=== PATIENT | male | born 1935 | race Caucasian/White ===

== ENCOUNTER 2018-10-13 22:53 | Inpatient (IN) ==
[2018-10-13] MEDS ORDERED: 0.9 % SODIUM CHLORIDE 1,000 ML IV ONE (23:00)
[2018-10-13] MEDS ORDERED: ACETAMINOPHEN 325 MG TABLET PO ONE (23:00)
--- NOTE | 2018-10-13 23:27 | Emergency Department Note ---
Fever HPI - General Chief Complaint: Fever Stated Complaint: fever Time Seen by Provider: 10/13/18 23:15 Source: EMS - History of Present Illness HPI Narrative: Patient states he is been not feeling well over the past 48 hours and started having some chills today they did not take his temperature but when the nut threader arrived they did get a temperature of 103.1 his last Tylenol was given at 2:00 todayTemperatures 103.1 the pulse is 109 respirations are 18 blood pressure 140/80 - Related Data Home Medications Medication Instructions Recorded Confirmed Aspirin 81 mg CHEWED DAILY 10/14/18 10/14/18 Benazepril HCl [Lotensin] 40 mg PO DAILY 10/14/18 10/14/18 Multivit-Min/Iron Fum/Folic AC 1 tab PO DAILY 10/14/18 10/14/18 [Vxomh-Trhewuf-Iuoiqyem Tablet] amLODIPine BESYLATE [Amlodipine 5 mg PO DAILY 10/14/18 10/14/18 Besylate] glipiZIDE [Glucotrol] 10 mg PO DAILY 10/14/18 10/14/18 metFORMIN [Glucophage] 1,000 mg PO BIDCC 10/14/18 10/14/18 sitaGLIPtin [Januvia] 50 mg PO BID 10/14/18 10/14/18 Allergies Allergy/AdvReac Type Severity Reaction Status Date / Time No Known Drug Allergies Allergy Unverified 10/14/18 00:38 Review of Systems All systems ED: reviewed and negative except as stated. Constitutional: Reports: fever, chills Eyes: Denies: eye pain ENT ED: Denies: ear pain Cardiovascular: Denies: chest pain, palpitations Respiratory: Reports: as per HPI. Denies: shortness of breath, cough Gastrointestinal: Denies: abdominal pain, nausea, vomiting Genitourinary: Denies: dysuria, frequency, urgency Fever PMH - Past Medical History Medical history: Reports: DM, hypertension Family history: Reports: other (diabetes-mother father) - Social History smoking status: Never smoker Alcohol use: Reports: None Drug use: Reports: none Physical Exam Limitations: no limitations General appearance: alert Head: atraumatic, normocephalic Eye: Present: normal appearance ENT: normal exam Neck: Present: normal inspection Chest: Present: normal inspection. Absent: tenderness Respiratory: Present: normal lung sounds bilaterally. Absent: respiratory distress, rales/crackles, wheezes Cardiovascular: Present: regular rate, normal rhythm, tachycardia Abdominal: Present: soft. Absent: distention, tenderness Extremities: Present: normal inspection, full ROM. Absent: tenderness Back: Present: normal inspection, full ROM. Absent: tenderness Neurological: Present: alert, oriented X3, CN II-XII intact Psychiatric: Present: normal affect, normal mood Skin: Present: warm, cool Course Vital Signs Temperature 103.1 F H 10/13/18 22:54 Pulse Rate 109 H 10/13/18 22:54 Respiratory Rate 18 10/13/18 22:54 Blood Pressure 140/80 10/13/18 22:54 Pulse Oximetry (%) 87 L 10/13/18 22:54 Temperature 100.5 F H 10/14/18 00:35 Pulse Rate 109 H 10/13/18 22:54 Respiratory Rate 18 10/13/18 22:54 Blood Pressure 140/80 10/13/18 22:54 Pulse Oximetry (%) 87 L 10/13/18 22:54 Fever - MDM Narrative Medical decision making narrative: WBC is 7700 with 95% granulocytes hemoglobin 15.9 hematocrit is 49.0 lactic acid is 4.0 sodium is 136 the potassium 3.6 the BUN is 28 creatinine 1.4 urine does show 15 WBCs 14 RBCs culture and sensitivity has been performed blood cultures have been drawn. Chest x-ray shows small infiltrate the right lower lung schmitt patient has been started on Zithromax and Rocephin after blood cultures drawn - Lab Data Result diagrams: 10/13/18 23:44 10/13/18 23:44 Lab Results 10/13/18 10/13/18 10/13/18 Range/Units 23:44 23:44 23:44 WBC 7.7 (4.5-11.0) K/mcL RBC 5.48 (4.50-5.90) M/mcL Hgb 15.9 (13.5-16.5) g/dL Hct 49.0 (41.0-55.0) % MCV 89.5 (80.0-100.0) fL MCH 29.1 (26.0-34.0) pg MCHC 32.5 (31.0-36.0) g/dL RDW 13.7 (11.5-14.5) % Plt Count 167 (140-440) K/mcL MPV 8.0 (7.4-10.4) fL Gran % 95.2 H (38.0-78.0) % Lymph % (Auto) 3.1 L (15.5-49.0) % [place] % (Auto) 1.7 (1.0-12.0) % Eos % (Auto) 0 (0.0-7.0) % Baso % (Auto) 0 (0.0-2.0) % Gran # 7.3 (1.8-8.0) K/mcL Lymph # (Auto) 0.2 L (1.5-4.8) K/mcL Sutter # (Auto) 0.1 (0.1-0.9) K/mcL Eos # (Auto) 0 (0.0-0.7) K/mcL Baso # (Auto) 0 (0.0-0.3) K/mcL VBG Lactic Acid 4.0 H* (0.5-2.0) mmol/L Sodium 136 (133-145) mmol/L Potassium 3.6 (3.3-5.1) mmol/L Chloride 96 (96-108) mmol/L Carbon Dioxide 21 L (22-30) mmol/L Anion Gap 19.0 H (8-16) BUN 28 H (8-23) mg/dl Creatinine 1.4 H (0.7-1.2) mg/dl GFR Calculation 47 Glucose 268 H (70-105) mg/dL Calcium 8.8 (8.6-10.4) mg/dl Total Bilirubin 1.3 H (0.0-1.0) mg/dL AST 30 (0-37) U/l ALT 36 (0-40) U/l Alkaline Phosphatase 68 (39-117) U/L Total Protein 7.1 (5.9-8.4) gm/dL Albumin 4.1 (3.2-5.2) gm/dL Globulin 3.0 (2.2-3.7) gm/dL Albumin/Globulin Ratio 1.4 (1.0-2.3) Procalcitonin (<0.10) ng/mL Urine Color Urine Appearance Urine pH (5.0-9.0) Ur Specific [place] (1.000-1.035) Urine Protein (NEG) mg/dL Urine Glucose (UA) (NEG) mg/dL Urine Ketones (NEG) mg/dL Urine Occult Blood (<0.03) mg/dL Urine Nitrate (NEG) Urine Bilirubin (NEG) mg/dL Urine Urobilinogen (NEG) mg/dL Ur Leukocyte Esterase (NEG) /uL Urine RBC (0-1) /hpf Urine WBC (0-4) /hpf Ur Squamous Epith Cells (0-4) /hpf Urine Bacteria (0) /hpf Urine Mucus (0) /hpf Ur Culture Indicated? 10/13/18 10/14/18 Range/Units 23:44 00:09 WBC (4.5-11.0) K/mcL RBC (4.50-5.90) M/mcL Hgb (13.5-16.5) g/dL Hct (41.0-55.0) % MCV (80.0-100.0) fL MCH (26.0-34.0) pg MCHC (31.0-36.0) g/dL RDW (11.5-14.5) % Plt Count (140-440) K/mcL MPV (7.4-10.4) fL Gran % (38.0-78.0) % Lymph % (Auto) (15.5-49.0) % Sutter % (Auto) (1.0-12.0) % Eos % (Auto) (0.0-7.0) % Baso % (Auto) (0.0-2.0) % Gran # (1.8-8.0) K/mcL Lymph # (Auto) (1.5-4.8) K/mcL Sutter # (Auto) (0.1-0.9) K/mcL Eos # (Auto) (0.0-0.7) K/mcL Baso # (Auto) (0.0-0.3) K/mcL VBG Lactic Acid (0.5-2.0) mmol/L Sodium (133-145) mmol/L Potassium (3.3-5.1) mmol/L Chloride (96-108) mmol/L Carbon Dioxide (22-30) mmol/L Anion Gap (8-16) BUN (8-23) mg/dl Creatinine (0.7-1.2) mg/dl GFR Calculation Glucose (70-105) mg/dL Calcium (8.6-10.4) mg/dl Total Bilirubin (0.0-1.0) mg/dL AST (0-37) U/l ALT (0-40) U/l Alkaline Phosphatase (39-117) U/L Total Protein (5.9-8.4) gm/dL Albumin (3.2-5.2) gm/dL Globulin (2.2-3.7) gm/dL Albumin/Globulin Ratio (1.0-2.3) Procalcitonin 0.39 (<0.10) ng/mL Urine Color Yellow Urine Appearance Clear Urine pH 5.0 (5.0-9.0) Ur Specific [place] 1.020 (1.000-1.035) Urine Protein 100 A (NEG) mg/dL Urine Glucose (UA) >=500 A (NEG) mg/dL Urine Ketones 20 A (NEG) mg/dL Urine Occult Blood 0.2 A (<0.03) mg/dL Urine Nitrate Neg (NEG) Urine Bilirubin Neg (NEG) mg/dL Urine Urobilinogen Neg (NEG) mg/dL Ur Leukocyte Esterase Neg (NEG) /uL Urine RBC 14 H (0-1) /hpf Urine WBC 15 H (0-4) /hpf Ur Squamous Epith Cells 0 (0-4) /hpf Urine Bacteria 0 (0) /hpf Urine Mucus Few (0) /hpf Ur Culture Indicated? Yes Disposition Pt seen by [facility]/PA only: No Clinical Impression: Sepsis, UTI (urinary tract infection), Right pulmonary infiltrate on CXR Disposition: Xfer As Inpt ([facility]) Condition: Fair Referrals: Delilah Hendrix MD [Primary Care Provider] - Time of Disposition: 01:40
[2018-10-14] MEDS ORDERED: cefTRIAXone 1 GM in DEXTROSE 5% IN WATER 50 ML IV ONE (00:11)
[2018-10-14] MEDS ORDERED: AZITHROMYCIN 500 MG in DEXTROSE 5% IN WATER 250 ML IV ONE (00:13)
[2018-10-14] MEDS ORDERED: 0.9 % SODIUM CHLORIDE 1,000 ML IV ONE (00:36)
[2018-10-14 00:47] LABS: Basophils # (Auto) 0 K/mcL (0.0-0.3); Basophils % (Auto) 0 % (0.0-2.0); Eosinophils # (Auto) 0 K/mcL (0.0-0.7); Eosinophils % (Auto) 0 % (0.0-7.0); Granulocytes % (Auto) 95.2 % (38.0-78.0); Hemoglobin 15.9 g/dL (13.5-16.5); Lymphocytes # (Auto) 0.2 K/mcL (1.5-4.8); Lymphocytes % (Auto) 3.1 % (15.5-49.0); Mean Cell Volume 89.5 fL (80.0-100.0); Mean Corpuscular HGB Conc 32.5 g/dL (31.0-36.0); Monocytes # (Auto) 0.1 K/mcL (0.1-0.9); Monocytes % (Auto) 1.7 % (1.0-12.0); Platelet Count 167 K/mcL (140-440); RBC 5.48 M/mcL (4.50-5.90); Red Cell Distribution Width 13.7 % (11.5-14.5); WBC 7.7 K/mcL (4.5-11.0)
[2018-10-14 01:09] LABS: ALT/SGPT 36 U/l (0-40); AST/SGOT 30 U/l (0-37); Albumin 4.1 gm/dL (3.2-5.2); Albumin/Globulin Ratio 1.4 (1.0-2.3); Alkaline Phosphatase 68 U/L (39-117); Bilirubin,Total 1.3 mg/dL (0.0-1.0); Blood Urea Nitrogen 28 mg/dl (8-23); Calcium 8.8 mg/dl (8.6-10.4); Carbon Dioxide 21 mmol/L (22-30); Chloride 96 mmol/L (96-108); Glomerular Filtration Rate 47; Glucose 268 mg/dL (70-105); Potassium 3.6 mmol/L (3.3-5.1); Sodium 136 mmol/L (133-145)
[2018-10-14 01:20] LABS: Appearance,Urine CLEAR; Bacteria,Urine 0 /hpf (0); Bilirubin,Urine NEG (NEG); Color,Urine YELLOW; Culture Indicated,Urine YES; Glucose,Urine (UA) >=500 mg/dL (NEG); Ketones,Urine 20 mg/dL (NEG); Leukocyte Esterase,Urine NEG /uL (NEG); Mucus,Urine FEW /hpf (0); Nitrate,Urine NEG (NEG); Protein,Urine 100 mg/dL (NEG); Urine Blood 0.2 mg/dL (<0.03); Urine RBC 14 /hpf (0-1); Urine Squamous Epithelial Cell 0 /hpf (0-4); Urine WBC 15 /hpf (0-4); Urobilinogen,Urine NEG (NEG)
--- NOTE | 2018-10-14 01:58 | Internal Med History&Physical ---
Medical - H&P: HPI Patient information: Note initiated : 10/14/18 at 1:53 am Service Date, if different from initiated Date: [] Patient: Addison Humphries a 83 y/o M admitted on for fever. Chief Complaint: [] History of present illness: Mr. Humphries is a 83 year old M with history of diabetes presents to the emergency room today for evaluation of chills and weakness. The patient notes he was at his baseline status 2 days ago 3 days ago. He went to [place] and drove back, on the way back he had one episode of chills and took some Tylenol which helped his symptoms. He was later seen by his PCP for annual wellness exam and labs were drawn subsequent to the visit. The patient notes he had no symptoms except for some back pain at that time. Since yesterday the patient has not been feeling well, he has increased wea kness, chills and Rigor's subjective sensation and cold, there was also some confusion,. He was therefore brought to the hospital for further evaluation. The patient denies any headache changes in vision difficulty in swallowing no chest pain no cough no shortness of breath no nausea no vomiting no diarrhea no joint pains no skin rashes no difficulty in passing urine. He has visited a few [employer] stores in [place] but otherwise denies any other travel denies any camping On presenting to the hospital the patient was noted to be febrile, 103.1, tachycardic heart rate 109, respirations 18 saturating 87% on room air blood pressure 140 x 80 Labs show WBC count of 7.7, this was 13.4 a couple of days ago hemoglobin 15.9 platelets 167 total bilirubin 1.3 slight trend up from the previous value I believe, sodium 136 potassium 3.6 bicarbonate 21 creatinine 1.4, it was 1.5 for couple of days ago. Lactic acid at 4.0 ABG shows pH of 7.52 PCO2 27 PO2 51 on 1.5 L of oxygen Chest x-ray shows right basilar atelectasis versus pneumonia UA has 15 WBC cells leukocyte esterase and nitrite negative Given patient's increased oxygen needs, confusion, elevated lactic acid high- grade fever patient is being admitted to the hospital for further management All systems: reviewed and no additional remarkable complaints except as stated (As per HPI rest negative) Medical - H&P: PMH Medical history: Hypertension Diabetes Pertinent family history: Family history of diabetes hypertension and stroke Social history: Non-smoker Social alcohol No recreational drugs reported Medical - H&P: Meds Home Medications Medication Instructions Recorded Confirmed Type Aspirin 81 mg CHEWED DAILY 10/14/18 10/14/18 History Benazepril HCl [Lotensin] 40 mg PO DAILY 10/14/18 10/14/18 History Multivit-Min/Iron Fum/Folic AC 1 tab PO DAILY 10/14/18 10/14/18 History [Xyvpp-Flevhda-Cfizmtjq Tablet] amLODIPine BESYLATE [Amlodipine 5 mg PO DAILY 10/14/18 10/14/18 History Besylate] glipiZIDE [Glucotrol] 10 mg PO DAILY 10/14/18 10/14/18 History metFORMIN [Glucophage] 1,000 mg PO BIDCC 10/14/18 10/14/18 History sitaGLIPtin [Januvia] 50 mg PO BID 10/14/18 10/14/18 History Allergies Allergy/AdvReac Type Severity Reaction Status Date / Time No Known Drug Allergies Allergy Unverified 10/14/18 00:38 Medical - H&P: Exam - Constitutional Vitals: Temp Pulse Resp BP Pulse Ox 100.5 F H 103 H 18 111/67 100 10/14/18 00:35 10/14/18 01:31 10/13/18 22:54 10/14/18 01:31 10/14/18 01:31 Exam: GENERAL: The patient is a well-developed, well-nourished in no apparent distress. Is alert and oriented x3. VITAL SIGNS: Reviewed and as noted elsewhere. HEENT: Head is normocephalic and atraumatic. Extraocular muscles are intact. Pupils are equal, round, and reactive to light. Nares appeared normal. Mouth appears any without lesions. Mucous membranes are moist. NECK: Normal to inspection, Supple, No lymphadenopathy or thyromegaly. LUNGS: Air entry equal on both sides, no wheezing,bibasilar mild crackles, rhonchi right base, No accessory muscles of respiration HEART: Regular rate and rhythm normal, S1 and S2 heard, no Gallop, S3 or Rub Noted, No Gross murmur heard. ABDOMEN: Soft, nontender, and nondistended. Positive bowel sounds. No hepatosplenomegaly was noted. EXTREMITIES: No cyanosis, clubbing, rash, lesions or edema. NEUROLOGIC: Cranial nerves II through XII are grossly intact. Motor and Sensory System Grossly Intact PSYCHIATRIC: Normal affect, Normal Mood. Appropriate Behavior. SKIN: No ulceration or wounds noted, No jaundice, No rash noted. Medical - H&P: Reslt - Labs CBC & Chem 7: 10/13/18 23:44 10/13/18 23:44 Labs: Short CBC 10/13/18 Range/Units 23:44 WBC 7.7 (4.5-11.0) K/mcL Hgb 15.9 (13.5-16.5) g/dL Hct 49.0 (41.0-55.0) % Plt Count 167 (140-440) K/mcL BMP 10/13/18 23:44 Sodium 136 Potassium 3.6 Chloride 96 Carbon Dioxide 21 L BUN 28 H Creatinine 1.4 H Glucose 268 H Calcium 8.8 Liver Function 10/13/18 Range/Units 23:44 Total Bilirubin 1.3 H (0.0-1.0) mg/dL AST 30 (0-37) U/l ALT 36 (0-40) U/l Alkaline Phosphatase 68 (39-117) U/L Albumin 4.1 (3.2-5.2) gm/dL Urine 10/14/18 Range/Units 00:09 Urine Color Yellow Urine Appearance Clear Urine pH 5.0 (5.0-9.0) Ur Specific [place] 1.020 (1.000-1.035) Urine Protein 100 A (NEG) mg/dL Urine Glucose (UA) >=500 A (NEG) mg/dL Medical - H&P: A/P - Narrative A/P Narrative: A/P Severe Sepsis Lactic ACidosis Pneumoina, Community Acquired DM HTN Acute Kidney INjury Acute hypoxic Respiratory Failure Elevated Bilirubin Plan Admit to PCU status, IV fluids, Trend lactate IV rocephin and zithromax for now, oxygen to keep osat > 90 Hold bp meds SSI insulin for glucose control monitor renal function, expect improvement with hydration. DVT hep sq Diet cardiac Full code.
[2018-10-14] MEDS ORDERED: ONDANSETRON 4 MG/2 ML VIAL IV PRN (02:39)
[2018-10-14] MEDS ORDERED: PROMETHAZINE 25 MG/ML VIAL IV PRN (02:39)
[2018-10-14] MEDS ORDERED: ALBUTEROL SULFATE 2.5 MG/3 ML NEBULIZER NEB PRN (02:39)
[2018-10-14] MEDS ORDERED: LACTATED RINGERS 1,000 ML IV ONE ×2 (02:39→07:52)
[2018-10-14] MEDS ORDERED: DEXTROSE 31 GM ORAL.SUSP PO PRN (02:39)
[2018-10-14] MEDS ORDERED: MAG HYDROX/AL HYDROX/SIMETH 30 ML ORAL.SUSP PO PRN (02:39)
[2018-10-14] MEDS ORDERED: DEXTROSE 50% 50 ML VIAL IV PRN (02:39)
[2018-10-14] MEDS ORDERED: ACETAMINOPHEN 325 MG TABLET PO PRN (02:39)
[2018-10-14 05:45] LABS: Basophils # (Auto) 0 K/mcL (0.0-0.3); Basophils % (Auto) 0 % (0.0-2.0); Eosinophils # (Auto) 0 K/mcL (0.0-0.7); Eosinophils % (Auto) 0 % (0.0-7.0); Granulocytes % (Auto) 91.5 % (38.0-78.0); Hematocrit 40.5 % (41.0-55.0); Hemoglobin 13.4 g/dL (13.5-16.5); Lymphocytes # (Auto) 0.4 K/mcL (1.5-4.8); Lymphocytes % (Auto) 3.2 % (15.5-49.0); Mean Corpuscular HGB Conc 33.1 g/dL (31.0-36.0); Mean Platelet Volume 8.3 fL (7.4-10.4); Monocytes # (Auto) 0.6 K/mcL (0.1-0.9); Monocytes % (Auto) 5.3 % (1.0-12.0); Platelet Count 161 K/mcL (140-440); Red Cell Distribution Width 13.9 % (11.5-14.5); WBC 12.2 K/mcL (4.5-11.0)
--- NOTE | 2018-10-14 05:49 | XRay Report ---
INDICATION: Fever TECHNIQUE: AP chest x-ray,portable semiupright COMPARISON: None FINDINGS:Lungs are negative. No parenchymal infiltrate or mass. No focal pulmonary parenchymal abnormalities. Heart size and vascularity are within normal limits. No acute abnormality. IMPRESSION: Negative AP chest x-ray Interpreted and Authenticated by: Jose Elias Darnell 10/14/18
[2018-10-14] MEDS: 0.9 % SODIUM CHLORIDE 10 ML SYRINGE IV SCH ×3 (05:55→20:29)
[2018-10-14 06:13] LABS: ALT/SGPT 26 U/l (0-40); AST/SGOT 25 U/l (0-37); Albumin 3.2 gm/dL (3.2-5.2); Albumin/Globulin Ratio 1.3 (1.0-2.3); Alkaline Phosphatase 49 U/L (39-117); Bilirubin,Direct 0.3 mg/dL (0.0-0.3); Bilirubin,Total 0.8 mg/dL (0.0-1.0); Blood Urea Nitrogen 24 mg/dl (8-23); Calcium 8.1 mg/dl (8.6-10.4); Carbon Dioxide 23 mmol/L (22-30); Chloride 100 mmol/L (96-108); Globulin 2.4 gm/dL (2.2-3.7); Glomerular Filtration Rate 51; Glucose 257 mg/dL (70-105); Lactate Dehydrogenase 166 U/L (94-250); Magnesium 1.5 mg/dL (1.6-2.5); Phosphorous 2.1 mg/dL (2.7-4.5); Potassium 3.2 mmol/L (3.3-5.1); Sodium 139 mmol/L (133-145); Triglycerides 75 mg/dl (<150); Uric Acid 4.5 mg/dL (2.5-8.0)
[2018-10-14] MEDS ORDERED: MAGNESIUM SULFATE 2 GM/50 ML BAG IV ONE (07:50)
[2018-10-14] MEDS: INSULIN LISPRO 1 UNIT/0.01 ML UNIT SQ SCH ×4 (08:04→20:28)
[2018-10-14] MEDS ORDERED: POTASSIUM PHOSPHATE 40 MEQ in DEXTROSE 5% IN WATER 500 ML IV ONE (09:00)
[2018-10-14] MEDS: ASPIRIN 81 MG TAB.CHEW CHEWED SCH (09:08)
[2018-10-14] MEDS: AZITHROMYCIN 250 MG TABLET PO SCH (09:08)
[2018-10-14] MEDS: MAGNESIUM OXIDE 400 MG TABLET PO SCH ×2 (09:08→20:29)
[2018-10-14] MEDS: HEPARIN 5,000 UNIT/ML VIAL SQ SCH ×2 (09:08→20:28)
[2018-10-14] MEDS: MULTIVIT,THER IRON,CA,FA & MIN 1 TABLET PO SCH (09:08)
[2018-10-14] MEDS ORDERED: IOPAMIDOL 100 ML BOTTLE IV ONE (11:15)
--- NOTE | 2018-10-14 11:41 | Cat Scan Report ---
CLINICAL INFORMATION: Fever TECHNIQUE: Axial images through the chest, abdomen, pelvis. 80 mL contrast material injected. Oral contrast material was not administered. Sagittal and coronal reformatted images obtained. COMPARISON: Chest x-ray dated 10/13/2018 FINDINGS: CHEST: Mild parenchymal density at both lung bases consistent with mild atelectasis and hypoexpansion. No parenchymal consolidation. No evidence for pneumonia. There is no significant bronchiectasis. No emphysematous change. There is no honeycombing or reticular abnormality. No evidence for pulmonary fibrosis. Rhona and mediastinum are negative. No pathologic lymphadenopathy. There is no axillary adenopathy. There is no supraclavicular adenopathy. There is no pleural effusion. There is no pericardial effusion. There is extensive coronary artery calcification. Thoracic aorta is negative. No thoracic aortic aneurysm. There is no dissection. The thoracic vertebral bodies are normal. No compression deformities. There is no evidence for discitis. No paraspinal soft tissue mass. ABDOMEN, PELVIS: 17 mm low-density lesion in the left lobe of the liver. This is nonspecific and may be a cyst. Ultrasound is recommended. Liver is otherwise negative. No other focal hepatic lesions. Liver contour is smooth. No evidence for cirrhosis. There is no ascites. Gallbladder is present. No calcified gallstones. No pericholecystic fluid. Spleen is negative. Normal enhancement of splenic and portal veins. Pancreas is negative. No pancreatic mass. No peripancreatic abnormality. No evidence for pancreatitis. Adrenal glands are negative. There are bilateral renal cysts. The largest cyst is left mid and upper pole and measures approximately 7 cm. There are multiple right renal cyst. No solid renal mass. There is no hydronephrosis or hydroureter. Urinary bladder is negative. No bladder calculi. Colon is negative. There is no diverticulitis. No detectable colonic mass. There is no evidence for appendicitis. Small bowel is negative. No mechanical small bowel obstruction. There is no retroperitoneal or mesenteric lymphadenopathy. There is no intra-abdominal abscess. No pneumoperitoneum. No biliary or portal venous gas. There is no pneumatosis. There is calcification of the abdominal aorta. No significant abdominal aortic aneurysm. There is no inguinal or anterior abdominal wall hernia. There is degenerative disc disease in the lumbar spine. No compression fractures. No evidence for discitis. IMPRESSION: 1. Mild bibasilar atelectasis. No pulmonary parenchymal consolidation. No evidence for pneumonia 2. 17 mm low-density lesion left lobe of the liver is probably a cyst. Recommend ultrasound. Multiple bilateral renal cysts. 3. Atherosclerotic disease. Extensive coronary artery disease Interpreted and Authenticated by: Jose Elias Darnell 10/14/18
--- NOTE | 2018-10-14 12:40 | General Surgery Progress Note ---
Surgical - Auxillary Note - Subjective Patient Information: Note initiated : 10/14/18 at 12:39 pm Service Date, if different from initiated Date: [] Patient: Addison Humphries 83 y/o M admitted on 10/14/18 for Fever. Chief Complaint: [] Patient with right distal ureter stone. feeling better today. will watch and re-evaluate in am full note dictated.
--- NOTE | 2018-10-14 13:04 | Consultation ---
DATE OF CONSULTATION: 10/14/2018 REQUESTING PHYSICIAN: Vinicio Manuel M.D. HISTORY OF PRESENT ILLNESS: The patient is an 83-year-old gentleman who was admitted for fever. Approximately three days ago, he was having severe back pain on the right side. He felt that this may be because of lying in an uncomfortable bed. This pain came and went, and on Friday he was seen by his primary care doctor and no abnormalities were noted. Last night he was having fever, chills, weakness, and still has occasional pain on the right side. He was admitted to the hospital because of sepsis. He does have a history of diabetes. He has never had stones before. A CT scan was obtained which showed multiple simple cysts in the kidney, but also a distal right ureteral stone about 6 mm in size. There is a partial obstruction. He states he is feeling better today and is eating a regular diet. I have been asked to evaluate him. It should be noted his white count is 12.2 since hydration. Creatinine is 1.3. PAST MEDICAL HISTORY: Significant for diabetes and hypertension. FAMILY HISTORY: Hypertension, diabetes and stroke. SOCIAL HISTORY: Does not smoke, does drink alcohol. CURRENT MEDICATIONS: 1. Aspirin. 2. Benazepril. 3. Amlodipine. 4. Glipizide. 5. Metformin. 6. Januvia. ALLERGIES: No known allergies. REVIEW OF SYSTEMS: CARDIAC: Denies any chest pain. RESPIRATORY: No wheezing, coughing, or asthma. PSYCHOLOGICAL: No depression or mood swings. The rest of a 14-point review of systems is negative. PHYSICAL EXAMINATION: GENERAL: This is a very pleasant gentleman in no apparent distress. VITAL SIGNS: As listed per note nurse's notes. HEENT: Atraumatic, normocephalic. Extraocular movements are intact. Mucous membranes are normal. NECK: Supple. Trachea is in the midline. HEART: Regular rate and rhythm. LUNGS: Clear to auscultation. ABDOMEN: Soft. Slight CVA tenderness on the right side. GENITOURINARY: Scrotum without lesion. No hydrocele, no varicocele. Testicles are down in their normal position. No hernias are appreciated. Penis is circumcised without plaques. Meatus at the end of his penis. Rectal exam was deferred. EXTREMITIES: Without clubbing, cyanosis or edema. NEUROLOGIC: Cranial nerves II-XII intact. IMAGING STUDIES: CT scan as above. IMPRESSION: The patient with what appears to be a distal right ureteral stone. I have talked to him and his about this and feel at this point clinically he is stable and seems to be improving. This is a 6 mm stone, and he does have a chance that he will pass this on his own. I will start him on Flomax to see if we can facilitate the passage. He also needs to strain his urine. I will reevaluate in the morning. If his white count is not improved, we may talk about doing surgery to remove the stone. I have discussed this with Dr. Manuel, and we are in agreement. ALBERTA:jojo Job ID: [id number] Doc ID: [id number] Cecilio Stiles MD
[2018-10-14] MEDS: cefTRIAXone 1 GM VIAL IV SCH (15:30)
[2018-10-14] MEDS ORDERED: VANCOMYCIN PER PHARMACY IV SCH (17:26)
[2018-10-14] MEDS: VANCOMYCIN 750 MG in 0.9 % SODIUM CHLORIDE 250 ML IV SCH (17:43)
[2018-10-14] MEDS ORDERED: TAMSULOSIN 0.4 MG CAPSULE PO SCH (21:00)
[2018-10-14] MEDS ORDERED: FAMOTIDINE/PF 20 MG/2 ML VIAL IV SCH (21:00)
[2018-10-15] MEDS: HYDROmorphone 2 MG/ML VIAL IV PRN (04:15)
[2018-10-15] MEDS: 0.9 % SODIUM CHLORIDE 10 ML SYRINGE IV SCH ×4 (05:11→21:17)
[2018-10-15 05:27] LABS: Basophils # (Auto) 0 K/mcL (0.0-0.3); Basophils % (Auto) 0.4 % (0.0-2.0); Eosinophils # (Auto) 0 K/mcL (0.0-0.7); Eosinophils % (Auto) 0.3 % (0.0-7.0); Hematocrit 39.1 % (41.0-55.0); Hemoglobin 12.9 g/dL (13.5-16.5); Lymphocytes # (Auto) 0.7 K/mcL (1.5-4.8); Mean Cell Volume 89.8 fL (80.0-100.0); Mean Corpuscular HGB Conc 33.1 g/dL (31.0-36.0); Mean Platelet Volume 8.5 fL (7.4-10.4); Monocytes # (Auto) 0.4 K/mcL (0.1-0.9); Monocytes % (Auto) 7.3 % (1.0-12.0); Platelet Count 145 K/mcL (140-440); RBC 4.35 M/mcL (4.50-5.90); Red Cell Distribution Width 13.7 % (11.5-14.5); WBC 5.7 K/mcL (4.5-11.0)
[2018-10-15 06:09] LABS: ALT/SGPT 30 U/l (0-40); AST/SGOT 30 U/l (0-37); Albumin 2.9 gm/dL (3.2-5.2); Albumin/Globulin Ratio 1.3 (1.0-2.3); Alkaline Phosphatase 46 U/L (39-117); Bilirubin,Direct < 0.2 mg/dL (0.0-0.3); Bilirubin,Total 0.4 mg/dL (0.0-1.0); Blood Urea Nitrogen 21 mg/dl (8-23); Calcium 7.7 mg/dl (8.6-10.4); Carbon Dioxide 24 mmol/L (22-30); Chloride 102 mmol/L (96-108); Globulin 2.3 gm/dL (2.2-3.7); Glomerular Filtration Rate 84; Glucose 103 mg/dL (70-105); Lactate Dehydrogenase 157 U/L (94-250); Magnesium 2.1 mg/dL (1.6-2.5); Phosphorous 2.8 mg/dL (2.7-4.5); Sodium 137 mmol/L (133-145); Triglycerides 115 mg/dl (<150); Uric Acid 4.2 mg/dL (2.5-8.0)
[2018-10-15] MEDS ORDERED: POTASSIUM CHLORIDE 80 MEQ in DEXTROSE 5% IN WATER 1,000 ML IV ONE (08:00)
[2018-10-15] MEDS: INSULIN LISPRO 1 UNIT/0.01 ML UNIT SQ SCH ×4 (08:03→21:26)
[2018-10-15] MEDS: cefTRIAXone 1 GM VIAL IV SCH (08:31)
[2018-10-15] MEDS: MAGNESIUM OXIDE 400 MG TABLET PO SCH ×2 (08:31→21:16)
[2018-10-15] MEDS: MULTIVIT,THER IRON,CA,FA & MIN 1 TABLET PO SCH (08:31)
[2018-10-15] MEDS: HEPARIN 5,000 UNIT/ML VIAL SQ SCH ×2 (08:31→21:16)
[2018-10-15] MEDS: AZITHROMYCIN 250 MG TABLET PO SCH (08:31)
[2018-10-15] MEDS: ASPIRIN 81 MG TAB.CHEW CHEWED SCH (08:32)
--- NOTE | 2018-10-15 08:59 | General Surgery Progress Note ---
Surgical - Auxillary Note - Subjective Patient Information: Note initiated : 10/15/18 at 8:57 am Service Date, if different from initiated Date: [] Patient: Addison Humphries 83 y/o M admitted on 10/14/18 for Fever. Chief Complaint:Right flank pain Patient improved today. Denies flank pain. wbc is down. urine culture pending. will observe today. discussed with DR. Manuel. will follow
--- NOTE | 2018-10-15 11:42 | Internal Med Progress Note ---
Medical - PN: Subj Patient information: Note initiated : 10/15/18 at 11:40 am Service Date, if different from initiated Date: [] Patient: Addison Humphries a 83 y/o M admitted on 10/14/18 for Fever. Chief Complaint: [] Interval history: Mr. Humphries is a 83 year old M with history of diabetes presents to the emergency room today for evaluation of chills and weakness. The patient notes he was at his baseline status 2 days ago 3 days ago. He went to [employer] and drove back, on the way back he had one episode of chills and took some Tylenol which helped his symptoms. He was later seen by his PCP for annual wellness exam and labs were drawn subsequent to the visit. The patient notes he had no symptoms except for some back pain at that time. Since yesterday the patient has not been feeling well, he has increased wea kness, chills and Rigor's subjective sensation and cold, there was also some confusion,. He was therefore brought to the hospital for further evaluation. The patient denies any headache changes in vision difficulty in swallowing no chest pain no cough no shortness of breath no nausea no vomiting no diarrhea no joint pains no skin rashes no difficulty in passing urine. He has visited a few [employer] stores in [place] but otherwise denies any other travel denies any camping On presenting to the hospital the patient was noted to be febrile, 103.1, tachycardic heart rate 109, respirations 18 saturating 87% on room air blood pressure 140 x 80 Labs show WBC count of 7.7, this was 13.4 a couple of days ago hemoglobin 15.9 platelets 167 total bilirubin 1.3 slight trend up from the previous value I believe, sodium 136 potassium 3.6 bicarbonate 21 creatinine 1.4, it was 1.5 for couple of days ago. Lactic acid at 4.0 ABG shows pH of 7.52 PCO2 27 PO2 51 on 1.5 L of oxygen Chest x-ray shows right basilar atelectasis versus pneumonia UA has 15 WBC cells leukocyte esterase and nitrite negative Given patient's increased oxygen needs, confusion, elevated lactic acid high- grade fever patient is being admitted to the hospital for further management 10/15 Patient seen and examined, patient was bacteremic gram-positive cocci in both bottles, appears to be staph epi, urine culture is growing coag negative staph. Patient had a CT chest abdomen done yesterday, although the radiology report does not report a stone or her nephrosis, there is right-sided distal ureteral stone with dilated ureter. In light of the patient's ongoing infection urology was consulted, appreciate their input given the patient is stable right now is asymptomatic with a WBC count trending down watchful treatment is planned Patient denies any hardware in his body no pacemakers no devices. Has not been hospitalized and notes that it has been a long time since his had an IV, I am not able to clearly explain the coag negative staph in blood in urine at this time. We will get an echocardiogram to evaluate for endocarditis Infectious disease consult likely tomorrow. Potassium low 3.0 worsened since yesterday we will replace Patient is asymptomatic has no complaints tolerating p.o. 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 Additional PMFSH (Level 3 Only): no h/o of any devices pmh reviewed Remote asbestos exposure present. - Constitutional Vitals: Vital Signs Temp Pulse Resp BP Pulse Ox 98.3 F 57 L 20 132/74 97 10/15/18 08:01 10/15/18 09:01 10/15/18 10:12 10/15/18 10:14 10/15/18 10:12 Period Temp Pulse Resp BP Sys/Vinson Pulse Ox Last 24 Hr 96.8 F-100.4 F 57-65 12-25 81-145/43-82 92-99 Intake and Output 10/14/18 10/15/18 10/15/18 21:59 05:59 13:59 Intake Total 200 200 519 Output Total 601 900 550 Balance -401 -700 -31 Weight 187 lb 9.6 oz Intake & Output: Intake & Output 10/14/18 10/15/18 10/15/18 21:59 05:59 13:59 Intake Total 200 200 519 Output Total 601 900 550 Balance -401 -700 -31 Weight 187 lb 9.6 oz Intake: IV 159 Potassium Chloride 80 Meq In 159 Dextrose 5% in Water 1,000 ml @ 130 mls/hr IV ONCE ONE Rx#: [id number] Oral 200 200 360 Output: Urine Catheter Amount 250 Void Amount 350 900 550 # of times incontinent of urine 1 0 Other: Meal Dinner Breakfast Percent of Meal Consumed 100% 100% Feeding Ability Independent Urine Appearance Hematuria Clear Clear Urine Color [place] Dark Yellow Bright Yellow Urine Odor Normal Normal # Voids 0 Exam: Constitutional; Afebrile, cooperative, alert, not in distress. Respiratory system: Air Entry equal on both sides, No crackles or wheezing, no rhonchi. CVS- Rate rhythm regular, S1,S2 heard, no gallop, no rub. Abdomen- Soft nontender abdomen, no organomegaly, no tenderness, no guarding or rigidity, [employer]- AOOx3, moving all extremities, no gross focal deficit noted. Medical - PN: Obj Da - Labs CBC & Chem 7: 10/15/18 04:00 10/15/18 04:00 Labs: Abnormal Lab Results 10/15/18 10/15/18 10/14/18 04:00 04:00 03:39 WBC RBC 4.35 L Hgb 12.9 L Hct 39.1 L Gran % 79.0 H Lymph % (Auto) 13.0 L Gran # Lymph # (Auto) 0.7 L VBG Lactic Acid Potassium 3.0 L 3.2 L Carbon Dioxide Anion Gap BUN 24 H Creatinine 1.3 H Glucose 257 H Calcium 7.7 L 8.1 L Phosphorus 2.1 L Magnesium 1.5 L Total Bilirubin Total Protein 5.2 L 5.6 L Albumin 2.9 L Urine Protein Urine Glucose (UA) Urine Ketones Urine Occult Blood Urine RBC Urine WBC 10/14/18 10/14/18 10/13/18 03:39 00:09 23:44 WBC 12.2 H RBC Hgb 13.4 L Hct 40.5 L Gran % 91.5 H Lymph % (Auto) 3.2 L Gran # 11.2 H Lymph # (Auto) 0.4 L VBG Lactic Acid 4.0 H* Potassium Carbon Dioxide Anion Gap BUN Creatinine Glucose Calcium Phosphorus Magnesium Total Bilirubin Total Protein Albumin Urine Protein 100 A Urine Glucose (UA) >=500 A Urine Ketones 20 A Urine Occult Blood 0.2 A Urine RBC 14 H Urine WBC 15 H 10/13/18 10/13/18 23:44 23:44 WBC RBC Hgb Hct Gran % 95.2 H Lymph % (Auto) 3.1 L Gran # Lymph # (Auto) 0.2 L VBG Lactic Acid Potassium Carbon Dioxide 21 L Anion Gap 19.0 H BUN 28 H Creatinine 1.4 H Glucose 268 H Calcium Phosphorus Magnesium Total Bilirubin 1.3 H Total Protein Albumin Urine Protein Urine Glucose (UA) Urine Ketones Urine Occult Blood Urine RBC Urine WBC Meds: Medications Acetaminophen (Tylenol) 650 mg PO Q4-6HP PRN PRN Reason: PAIN/FEVER > 101 Last Admin: 10/14/18 20:31 Dose: 650 mg Documented by: Al Hydrox/Mg Hydrox/Simethicone (Maalox) 30 ml PO Q4-6HP PRN PRN Reason: Dyspepsia Albuterol Sulfate (Ventolin) 2.5 mg NEB Q4HRT PRN PRN Reason: Shortness Of Breath Or Wheezing Aspirin (Aspirin) 81 mg CHEWED DAILY [facility] Last Admin: 10/15/18 08:32 Dose: 81 mg Documented by: Ceftriaxone Sodium (Rocephin) 1 gm IV Q24H [facility]; Protocol Last Admin: 10/15/18 08:31 Dose: 1 gm Documented by: Dextrose (Dextrose 50%) 0 ml IV UD PRN PRN Reason: Hypoglycemia Diagnostic Test (Pha) (Accu-Chek) 1 each FS ACHS [facility] Last Admin: 10/15/18 07:35 Dose: 1 each Documented by: Famotidine (Pepcid) 20 mg IV HS [facility] Last Admin: 10/14/18 20:29 Dose: 20 mg Documented by: Glucose (Insta-Glucose) 15 gm PO PRN PRN PRN Reason: Hypoglycemia Heparin Sodium (Porcine) (Heparin) 5,000 unit SQ Q12 [facility] Last Admin: 10/15/18 08:31 Dose: 5,000 unit Documented by: Vancomycin HCl 750 mg/ Sodium (Chloride) 250 mls @ 250 mls/hr IV Q24H [facility] Last Admin: 10/14/18 17:43 Dose: 250 mls/hr Documented by: Potassium Chloride 80 meq/ (Dextrose) 1,040 mls @ 130 mls/hr IV ONCE ONE Stop: 10/15/18 15:59 Last Infusion: 10/15/18 11:10 Dose: 0 mls/hr Documented by: Insulin Human Lispro (Humalog) 0 unit SQ ACHS [facility]; Protocol Last Admin: 10/15/18 08:03 Dose: Not Given Documented by: Iron Carb/Multivit/[place]/Folic Acid (Multivitamin W/Minerals) 1 tab PO DAILY [facility] Last Admin: 10/15/18 08:31 Dose: 1 tab Documented by: Magnesium Oxide (Magnesium Oxide) 400 mg PO BID [facility] Last Admin: 10/15/18 08:31 Dose: 400 mg Documented by: Ondansetron HCl (Zofran) 4 mg IV Q4-6HP PRN PRN Reason: Nausea And Vomiting Promethazine HCl (Phenergan) 12.5 mg IV Q4-6HP PRN PRN Reason: Nausea And Vomiting Sodium Chloride (Saline Flush) 10 ml IV Q8 [facility] Last Admin: 10/15/18 09:36 Dose: 10 ml Documented by: Tamsulosin HCl (Flomax) 0.4 mg PO HS [facility] Last Admin: 10/14/18 20:28 Dose: 0.4 mg Documented by: Vancomycin HCl (Vancomycin Per Pharmacy) 1 order IV UD [facility]; Protocol Medical - PN: A/P - Time Spent With Patient Total time spent is greater than 50% in coordination of care (as documented) at patient's floor/unit and/or counseling patient: - Narrative A/P Narrative: A/P Severe Sepsis Gram positive bactermia, Lactic ACidosis, resolved Hypokalemia, acute DM HTN Acute Kidney INjury,creat back to baseline, resolved Acute hypoxic Respiratory Failure, resolved Elevated Bilirubin, resolved Hydrouretar/Hydronephrosis Plan xfer to med surg d/c azithromcyin started on IV vancomycin and continue rocephin for now, till final cultures are back no pna noted on CT chest ab domen oxygen to keep osat > 90 Hold bp meds, bp is still soft SSI insulin for glucose control monitor renal function, expect improvement with hydration. Infectious disease consult in AM DVT hep sq Diet cardiac Full code. Medical - PN: Qual - Stroke Symptom Onset Unknown: No - VTE Deep Vein Thrombosis/Pulmonary Embolism Present on Admission: No
[2018-10-15] MEDS: VANCOMYCIN 750 MG in 0.9 % SODIUM CHLORIDE 250 ML IV SCH (12:02)
[2018-10-15] MEDS ORDERED: DEXTROSE 50% 50 ML VIAL IV PRN (12:12)
[2018-10-15] MEDS ORDERED: ALBUTEROL SULFATE 2.5 MG/3 ML NEBULIZER NEB PRN (12:12)
[2018-10-15] MEDS ORDERED: DEXTROSE 31 GM ORAL.SUSP PO PRN (12:12)
[2018-10-15] MEDS ORDERED: PROMETHAZINE 25 MG/ML VIAL IV PRN (12:12)
[2018-10-15] MEDS ORDERED: ONDANSETRON 4 MG/2 ML VIAL IV PRN (12:12)
[2018-10-15] MEDS ORDERED: MAG HYDROX/AL HYDROX/SIMETH 30 ML ORAL.SUSP PO PRN (12:12)
[2018-10-15] MEDS ORDERED: VANCOMYCIN PER PHARMACY IV SCH (12:12)
[2018-10-15] MEDS: ACETAMINOPHEN 325 MG TABLET PO PRN ×3 (12:46→21:18)
[2018-10-15] MEDS ORDERED: TAMSULOSIN 0.4 MG CAPSULE PO SCH (21:00)
[2018-10-15] MEDS ORDERED: FAMOTIDINE/PF 20 MG/2 ML VIAL IV SCH (21:00)
[2018-10-16] MEDS ORDERED: HYDROmorphone 2 MG/ML VIAL ONE ×2 (00:04→04:12)
[2018-10-16 05:32] LABS: Basophils # (Auto) 0 K/mcL (0.0-0.3); Basophils % (Auto) 0.2 % (0.0-2.0); Eosinophils # (Auto) 0 K/mcL (0.0-0.7); Eosinophils % (Auto) 0.4 % (0.0-7.0); Granulocytes % (Auto) 66.9 % (38.0-78.0); Hematocrit 40.3 % (41.0-55.0); Hemoglobin 13.5 g/dL (13.5-16.5); Lymphocytes # (Auto) 1.2 K/mcL (1.5-4.8); Lymphocytes % (Auto) 21.6 % (15.5-49.0); Mean Cell Volume 89.1 fL (80.0-100.0); Mean Corpuscular HGB Conc 33.6 g/dL (31.0-36.0); Mean Platelet Volume 9.1 fL (7.4-10.4); Monocytes # (Auto) 0.6 K/mcL (0.1-0.9); Monocytes % (Auto) 10.9 % (1.0-12.0); Platelet Count 155 K/mcL (140-440); RBC 4.52 M/mcL (4.50-5.90); Red Cell Distribution Width 13.5 % (11.5-14.5); WBC 5.4 K/mcL (4.5-11.0)
[2018-10-16 05:58] LABS: ALT/SGPT 32 U/l (0-40); AST/SGOT 29 U/l (0-37); Albumin 3.1 gm/dL (3.2-5.2); Albumin/Globulin Ratio 1.2 (1.0-2.3); Alkaline Phosphatase 58 U/L (39-117); Bilirubin,Direct < 0.2 mg/dL (0.0-0.3); Bilirubin,Total 0.4 mg/dL (0.0-1.0); Blood Urea Nitrogen 17 mg/dl (8-23); Calcium 7.8 mg/dl (8.6-10.4); Carbon Dioxide 24 mmol/L (22-30); Chloride 103 mmol/L (96-108); Globulin 2.6 gm/dL (2.2-3.7); Glomerular Filtration Rate 84; Glucose 184 mg/dL (70-105); Lactate Dehydrogenase 160 U/L (94-250); Magnesium 2.1 mg/dL (1.6-2.5); Phosphorous 2.7 mg/dL (2.7-4.5); Potassium 3.7 mmol/L (3.3-5.1); Sodium 138 mmol/L (133-145); Triglycerides 173 mg/dl (<150); Uric Acid 3.7 mg/dL (2.5-8.0)
[2018-10-16] MEDS: INSULIN LISPRO 1 UNIT/0.01 ML UNIT SQ SCH ×4 (08:04→21:00)
[2018-10-16] MEDS: 0.9 % SODIUM CHLORIDE 10 ML SYRINGE IV SCH ×4 (08:05→20:57)
[2018-10-16] MEDS: MAGNESIUM OXIDE 400 MG TABLET PO SCH ×2 (08:07→20:56)
[2018-10-16] MEDS: HEPARIN 5,000 UNIT/ML VIAL SQ SCH ×2 (08:08→20:57)
[2018-10-16] MEDS ORDERED: VANCOMYCIN 1,000 MG in 0.9 % SODIUM CHLORIDE 250 ML IV SCH ×2 (09:00→21:00)
[2018-10-16] MEDS ORDERED: cefTRIAXone 1 GM VIAL IV SCH (09:00)
[2018-10-16] MEDS ORDERED: VANCOMYCIN 1,250 MG in 0.9 % SODIUM CHLORIDE 500 ML IV SCH (09:00)
[2018-10-16] MEDS ORDERED: ASPIRIN 81 MG TAB.CHEW CHEWED SCH (09:00)
[2018-10-16] MEDS ORDERED: MULTIVIT,THER IRON,CA,FA & MIN 1 TABLET PO SCH (09:00)
[2018-10-16] MEDS ORDERED: VANCOMYCIN 750 MG in 0.9 % SODIUM CHLORIDE 250 ML IV SCH (09:00)
--- NOTE | 2018-10-16 09:02 | XRay Report ---
CLINICAL INFORMATION: Back pain. Fever. TECHNIQUE: AP supine abdomen COMPARISON: CT scan dated 10/14/2018 FINDINGS: Gas and fecal material within the colon. There is small bowel gas without significant dilatation. Fecal material within the colon is somewhat prominent and constipation is possible. There is no evidence for fecal impaction. Bowel gas pattern is nonspecific and nonobstructive. There is no pneumatosis. No biliary or portal venous gas. There is a 5 mm elongated calcification to the right of midline in the pelvis. Review of the previous CT scan shows a stone in the distal right ureter. This is unchanged. There is degenerative disc disease at the L4-5 level. IMPRESSION: 1. 5 mm distal right ureteral calculus. This is identified in retrospect on CT scan dated 10/14/2018 2. Otherwise negative abdomen. Nonspecific and nonobstructive bowel gas pattern. Interpreted and Authenticated by: Jose Elias Darnell 10/16/18
--- NOTE | 2018-10-16 09:34 | General Surgery Progress Note ---
Surgical - Auxillary Note - Subjective Patient Information: Note initiated : 10/16/18 at 9:30 am Service Date, if different from initiated Date: [] Patient: Addison Humphries 83 y/o M admitted on 10/14/18 for Fever. Chief Complaint: [] patient complained of right flank pain last night. KUB this am shows distal right ureteral stone. discussed with patient and his familyand will take him to OR today for right ureteroscopy and stone removal.. full PARQ discussion was held and he agrees. surgery this pm. 20 minutes spent coordinating care.
--- NOTE | 2018-10-16 09:47 | Internal Med Progress Note ---
Medical - PN: Subj Patient information: Note initiated : 10/16/18 at 9:44 am Service Date, if different from initiated Date: [] Patient: Addison Humphries a 83 y/o M admitted on 10/14/18 for Fever. Chief Complaint: [] Interval history: Mr. Humphries is a 83 year old M with history of diabetes presents to the emergency room today for evaluation of chills and weakness. The patient notes he was at his baseline status 2 days ago 3 days ago. He went to [employer] and drove back, on the way back he had one episode of chills and took some Tylenol which helped his symptoms. He was later seen by his PCP for annual wellness exam and labs were drawn subsequent to the visit. The patient notes he had no symptoms except for some back pain at that time. Since yesterday the patient has not been feeling well, he has increased weak ness, chills and Rigor's subjective sensation and cold, there was also some confusion,. He was therefore brought to the hospital for further evaluation. The patient denies any headache changes in vision difficulty in swallowing no chest pain no cough no shortness of breath no nausea no vomiting no diarrhea no joint pains no skin rashes no difficulty in passing urine. He has visited a few [employer] stores in [place] but otherwise denies any other travel denies any camping On presenting to the hospital the patient was noted to be febrile, 103.1, tachycardic heart rate 109, respirations 18 saturating 87% on room air blood pressure 140 x 80 Labs show WBC count of 7.7, this was 13.4 a couple of days ago hemoglobin 15.9 platelets 167 total bilirubin 1.3 slight trend up from the previous value I b elieve, sodium 136 potassium 3.6 bicarbonate 21 creatinine 1.4, it was 1.5 for couple of days ago. Lactic acid at 4.0 ABG shows pH of 7.52 PCO2 27 PO2 51 on 1.5 L of oxygen Chest x-ray shows right basilar atelectasis versus pneumonia UA has 15 WBC cells leukocyte esterase and nitrite negative Given patient's increased oxygen needs, confusion, elevated lactic acid high- grade fever patient is being admitted to the hospital for further management 10/15 Patient seen and examined, patient was bacteremic gram-positive cocci in both bottles, appears to be staph epi, urine culture is growing coag negative staph. Patient had a CT chest abdomen done yesterday, although the radiology report does not report a stone or her nephrosis, there is right-sided distal ureteral stone with dilated ureter. In light of the patient's ongoing infection urology was consulted, appreciate their input given the patient is stable right now is asymptomatic with a WBC count trending down watchful treatment is planned Patient denies any hardware in his body no pacemakers no devices. Has not been hospitalized and notes that it has been a long time since his had an IV, I am not able to clearly explain the coag negative staph in blood in urine at this time. We will get an echocardiogram to evaluate for endocarditis Infectious disease consult likely tomorrow. Potassium low 3.0 worsened since yesterday we will replace Patient is asymptomatic has no complaints tolerating p.o. 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 The patient's repeat blood cultures are negative. Patient still has right-sided flank pain. X-ray KUB done this morning shows persistent distal ureteral stone, in light of urine cultures positive and blood cultures positive persistent pain, urology would be taking the patient to the OR today for stone extraction. Patient denies any chills fever headache nausea vomiting or any other acute concern. Pertinent ROS: Denies headache, dizziness Denies chest pain, palpitations Denies cough or shortness of breath Denies abdominal pain, nausea or vomiting., right flank pain present - Constitutional Vitals: Vital Signs Temp Pulse Resp BP Pulse Ox 97.9 F 72 18 136/87 96 10/16/18 08:00 10/16/18 08:00 10/16/18 08:00 10/16/18 08:00 10/16/18 08:00 Period Temp Pulse Resp BP Sys/Vinson Pulse Ox Last 24 Hr 97.3 F-98.2 F 60-72 16-20 117-136/69-87 94-97 Intake and Output 10/15/18 10/16/18 10/16/18 21:59 05:59 13:59 Intake Total 3200.0909 Output Total 2625 300 600 Balance 575.0909 -300 -600 Weight 186 lb 8 oz Intake & Output: Intake & Output 10/15/18 10/16/18 10/16/18 21:59 05:59 13:59 Intake Total 3200.0909 Output Total 2625 300 600 Balance 575.0909 -300 -600 Weight 186 lb 8 oz Intake: IV 2440.0909 Oral 760 Output: Urine Catheter Amount 475 Void Amount 2625 300 125 # of times incontinent of urine 0 Other: Meal Dinner Percent of Meal Consumed 75% Feeding Ability Independent Urine Appearance Clear Clear Clear Urine Color Bright Yellow Pale Bright Yellow Urine Odor Normal Normal # Voids 0 Exam: Constitutional; Afebrile, cooperative, alert, not in distress. Respiratory system: Air Entry equal on both sides, No crackles or wheezing, no rhonchi. CVS- Rate rhythm regular, S1,S2 heard, no gallop, no rub. Abdomen- Soft nontender abdomen, no organomegaly, no tenderness, no guarding or rigidity, [employer] PLANT SUPERVISOR- AOOx3, moving all extremities, no gross focal deficit noted. Medical - PN: Obj Da - Labs CBC & Chem 7: 10/16/18 03:48 10/16/18 03:48 Labs: Abnormal Lab Results 10/16/18 10/16/18 10/15/18 03:48 03:48 04:00 WBC RBC Hgb Hct 40.3 L Gran % Lymph % (Auto) Gran # Lymph # (Auto) 1.2 L VBG Lactic Acid Potassium 3.0 L Carbon Dioxide Anion Gap BUN Creatinine Glucose 184 H Calcium 7.8 L 7.7 L Phosphorus Magnesium Total Bilirubin Total Protein 5.7 L 5.2 L Albumin 3.1 L 2.9 L Triglycerides 173 H Urine Protein Urine Glucose (UA) Urine Ketones Urine Occult Blood Urine RBC Urine WBC 10/15/18 10/14/18 10/14/18 04:00 03:39 03:39 WBC 12.2 H RBC 4.35 L Hgb 12.9 L 13.4 L Hct 39.1 L 40.5 L Gran % 79.0 H 91.5 H Lymph % (Auto) 13.0 L 3.2 L Gran # 11.2 H Lymph # (Auto) 0.7 L 0.4 L VBG Lactic Acid Potassium 3.2 L Carbon Dioxide Anion Gap BUN 24 H Creatinine 1.3 H Glucose 257 H Calcium 8.1 L Phosphorus 2.1 L Magnesium 1.5 L Total Bilirubin Total Protein 5.6 L Albumin Triglycerides Urine Protein Urine Glucose (UA) Urine Ketones Urine Occult Blood Urine RBC Urine WBC 10/14/18 10/13/18 10/13/18 00:09 23:44 23:44 WBC RBC Hgb Hct Gran % Lymph % (Auto) Gran # Lymph # (Auto) VBG Lactic Acid 4.0 H* Potassium Carbon Dioxide 21 L Anion Gap 19.0 H BUN 28 H Creatinine 1.4 H Glucose 268 H Calcium Phosphorus Magnesium Total Bilirubin 1.3 H Total Protein Albumin Triglycerides Urine Protein 100 A Urine Glucose (UA) >=500 A Urine Ketones 20 A Urine Occult Blood 0.2 A Urine RBC 14 H Urine WBC 15 H 10/13/18 23:44 WBC RBC Hgb Hct Gran % 95.2 H Lymph % (Auto) 3.1 L Gran # Lymph # (Auto) 0.2 L VBG Lactic Acid Potassium Carbon Dioxide Anion Gap BUN Creatinine Glucose Calcium Phosphorus Magnesium Total Bilirubin Total Protein Albumin Triglycerides Urine Protein Urine Glucose (UA) Urine Ketones Urine Occult Blood Urine RBC Urine WBC Meds: Medications Acetaminophen (Tylenol) 650 mg PO Q4-6HP PRN PRN Reason: PAIN/FEVER > 101 Last Admin: 10/15/18 21:18 Dose: 650 mg Documented by: Al Hydrox/Mg Hydrox/Simethicone (Maalox) 30 ml PO Q4-6HP PRN PRN Reason: Dyspepsia Albuterol Sulfate (Ventolin) 2.5 mg NEB Q4HRT PRN PRN Reason: Shortness Of Breath Or Wheezing Aspirin (Aspirin) 81 mg CHEWED DAILY [facility] Last Admin: 10/16/18 08:07 Dose: 81 mg Documented by: Ceftriaxone Sodium (Rocephin) 1 gm IV Q24H [facility]; Protocol Last Admin: 10/16/18 08:21 Dose: 1 gm Documented by: Dextrose (Dextrose 50%) 0 ml IV UD PRN PRN Reason: Hypoglycemia Diagnostic Test (Pha) (Accu-Chek) 1 each FS ACHS [facility] Last Admin: 10/16/18 08:03 Dose: 1 each Documented by: Famotidine (Pepcid) 20 mg IV HS [facility] Last Admin: 10/15/18 21:16 Dose: 20 mg Documented by: Glucose (Insta-Glucose) 15 gm PO PRN PRN PRN Reason: Hypoglycemia Heparin Sodium (Porcine) (Heparin) 5,000 unit SQ Q12 [facility] Last Admin: 10/16/18 08:08 Dose: 5,000 unit Documented by: Hydromorphone HCl (Dilaudid) 0.5 mg IV Q2HP PRN PRN Reason: Pain Vancomycin HCl 1,000 mg/ (Sodium Chloride) 250 mls @ 250 mls/hr IV Q12H [facility] Last Admin: 10/16/18 09:29 Dose: 250 mls/hr Documented by: Insulin Human Lispro (Humalog) 0 unit SQ ACHS [facility]; Protocol Last Admin: 10/16/18 08:04 Dose: 2 units Documented by: Iron Carb/Multivit/Banks/Folic Acid (Multivitamin W/Minerals) 1 tab PO DAILY [facility] Last Admin: 10/16/18 08:21 Dose: 1 tab Documented by: Magnesium Oxide (Magnesium Oxide) 400 mg PO BID [facility] Last Admin: 10/16/18 08:07 Dose: 400 mg Documented by: Ondansetron HCl (Zofran) 4 mg IV Q4-6HP PRN PRN Reason: Nausea And Vomiting Promethazine HCl (Phenergan) 12.5 mg IV Q4-6HP PRN PRN Reason: Nausea And Vomiting Sodium Chloride (Saline Flush) 10 ml IV Q8 [facility] Last Admin: 10/16/18 08:05 Dose: 10 ml Documented by: Tamsulosin HCl (Flomax) 0.4 mg PO HS [facility] Last Admin: 10/15/18 21:16 Dose: 0.4 mg Documented by: Vancomycin HCl (Vancomycin Per Pharmacy) 1 order IV UD [facility]; Protocol Medical - PN: A/P - Time Spent With Patient Total time spent is greater than 50% in coordination of care (as documented) at patient's floor/unit and/or counseling patient: - Narrative A/P Narrative: A/P Severe Sepsis Gram positive bactermia, Lactic ACidosis, resolved Hypokalemia, acute DM HTN Acute Kidney INjury,creat back to baseline, resolved Acute hypoxic Respiratory Failure, resolved Elevated Bilirubin, resolved Hydrouretar/Hydronephrosis Plan d/c azithromcyin, will d/c rocephin, continue IV vancomycin, for now, sensitivities of blood and urine cx prending, speciation pending. Infectious disease consulted. no pna noted on CT chest abdomen oxygen to keep osat > 90 Hold bp meds, bp is still soft SSI insulin for glucose control renal function is back to normal. DVT hep sq Diet cardiac Full code. Medical - PN: Qual - Stroke Symptom Onset Unknown: No - VTE Deep Vein Thrombosis/Pulmonary Embolism Present on Admission: No
[2018-10-16] MEDS: HYDROmorphone 2 MG/ML VIAL IV PRN (10:35)
[2018-10-16] MEDS: ACETAMINOPHEN 325 MG TABLET PO PRN (10:35)
--- NOTE | 2018-10-16 16:43 | Infectious Disease Consult ---
History of Present Illness Patient information: Note initiated : 10/16/18 at 4:04 pm Service Date, if different from initiated Date: [] Patient: Addison Humphries 83 y/o M admitted on 10/14/18 for Fever. Chief Complaint: [] Consult date: 10/16/18 Requesting Physician: Vinicio Manuel Reason for Consult: CONS bacteremia Chief complaint: i have right flank pain History of present illness: 83 year old man with past history of diabetes was admitted to [facility] on 10/14 with c/o higgh fever and chills. Pt was doing fine last week, until this Friday when just after returning from [place] he felt unwell. He was seen by his PCP for annual physical, which went fine with labs collected at that time showing leucocytosis [13.4 k]. Pt was prescribed some Tylenol, which made him feel well but then on 10/13 he did not feel well with onset of right flank pain, fever, chills and weakness, confusion, blood in urine, burning while urination. At admission: VS temp of 103.1F, HR 109, RR 18, satting 87% on RA, BP 140/80 mm Hg. WBC count of 7.7, hemoglobin 15.9, platelets 167, Creatinine 1.4 (was 1.5 at doctor;s visit). Lactic acid 4, ABG showing pH of 7.52, PCO2 27, PO2 51 on 1.5 L of oxygen. Chest x-ray showed right basilar atelectasis. Pt was started on IV Ceftriaxone and IV Azithromycin for suspected CAP. In due course, CT chest/abd/pelvis was done. 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 A 5 mm stone was found in right distal ureter on xray KUB and CT. Blood obtained at admission grew 2/2 sets for CONS (ID and sensi pending), urine Cx growing CONS (ID and sensi pending). Pt;s clinical condition improved on 2nd day of hospital stay, and he was switched to IV Vanc. He continues to have epidosic right flank pain. He was seen by Urology on 10/14, with plans for watchful waiting as his Cr was not elevated and no significant hydronephrosis on CT. He is scheduled to undergo stone removal today evening at 5. At time of visit today, pt reported feeling back to baseline except for right flank pain, described as nagging, and comes and goes. Denied any fever, chills, burning while urination, blood in urine, skin boils, dental procedures recently. Adds that it is the 1st time he has been admitted to a hospital. 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 Medications and Allergies Home Medications Medication Instructions Recorded Confirmed Type Aspirin 81 mg CHEWED DAILY 10/14/18 10/14/18 History Benazepril HCl [Lotensin] 40 mg PO DAILY 10/14/18 10/14/18 History Multivit-Min/Iron Fum/Folic AC 1 tab PO DAILY 10/14/18 10/14/18 History [Bavdc-Tcfqqdh-Lfklnvqa Tablet] amLODIPine BESYLATE [Amlodipine 5 mg PO DAILY 10/14/18 10/14/18 History Besylate] glipiZIDE [Glucotrol] 10 mg PO DAILY 10/14/18 10/14/18 History metFORMIN [Glucophage] 1,000 mg PO QAMCC 10/14/18 10/14/18 History metFORMIN [Glucophage] 500 mg PO QPMCC 10/14/18 10/14/18 History sitaGLIPtin [Januvia] 50 mg PO BID 10/14/18 10/14/18 History Allergies Allergy/AdvReac Type Severity Reaction Status Date / Time No Known Drug Allergies Allergy Verified 10/14/18 03:28 Physical Examination Vital signs: Temp Pulse Resp BP Pulse Ox 36.4 C 58 L 14 124/78 96 10/16/18 16:00 10/16/18 16:00 10/16/18 16:00 10/16/18 16:00 10/16/18 16:00 General appearance: no acute distress Eyes pulmonary: nonicteric ENT: oropharynx moist Effort: normal Auscultation: bilateral: clear Cardiovascular: regular rate and rhythm Gastrointestinal: normoactive bowel sounds Integumentary: normal Extremities: no edema Rt CVA tenderness Results - Laboratory Findings CBC and BMP: 10/17/18 04:25 10/17/18 04:25 Abnormal lab findings: Abnormal Labs 10/13/18 10/13/18 10/13/18 23:44 23:44 23:44 WBC RBC Hgb Hct Gran % 95.2 H Lymph % (Auto) 3.1 L Gran # Lymph # (Auto) 0.2 L VBG Lactic Acid 4.0 H* Potassium Carbon Dioxide 21 L Anion Gap 19.0 H BUN 28 H Creatinine 1.4 H Glucose 268 H Calcium Phosphorus Magnesium Total Bilirubin 1.3 H Total Protein Albumin Triglycerides Urine Protein Urine Glucose (UA) Urine Ketones Urine Occult Blood Urine RBC Urine WBC 10/14/18 10/14/18 10/14/18 00:09 03:39 03:39 WBC 12.2 H RBC Hgb 13.4 L Hct 40.5 L Gran % 91.5 H Lymph % (Auto) 3.2 L Gran # 11.2 H Lymph # (Auto) 0.4 L VBG Lactic Acid Potassium 3.2 L Carbon Dioxide Anion Gap BUN 24 H Creatinine 1.3 H Glucose 257 H Calcium 8.1 L Phosphorus 2.1 L Magnesium 1.5 L Total Bilirubin Total Protein 5.6 L Albumin Triglycerides Urine Protein 100 A Urine Glucose (UA) >=500 A Urine Ketones 20 A Urine Occult Blood 0.2 A Urine RBC 14 H Urine WBC 15 H 10/15/18 10/15/18 10/16/18 04:00 04:00 03:48 WBC RBC 4.35 L Hgb 12.9 L Hct 39.1 L 40.3 L Gran % 79.0 H Lymph % (Auto) 13.0 L Gran # Lymph # (Auto) 0.7 L 1.2 L VBG Lactic Acid Potassium 3.0 L Carbon Dioxide Anion Gap BUN Creatinine Glucose Calcium 7.7 L Phosphorus Magnesium Total Bilirubin Total Protein 5.2 L Albumin 2.9 L Triglycerides Urine Protein Urine Glucose (UA) Urine Ketones Urine Occult Blood Urine RBC Urine WBC 10/16/18 03:48 WBC RBC Hgb Hct Gran % Lymph % (Auto) Gran # Lymph # (Auto) VBG Lactic Acid Potassium Carbon Dioxide Anion Gap BUN Creatinine Glucose 184 H Calcium 7.8 L Phosphorus Magnesium Total Bilirubin Total Protein 5.7 L Albumin 3.1 L Triglycerides 173 H Urine Protein Urine Glucose (UA) Urine Ketones Urine Occult Blood Urine RBC Urine WBC Microbiology: Microbiology 10/14/18 00:09 Urine - Clean Void Mid-Stream Urine Culture - Preliminary Coagulase negative staph 10/13/18 23:50 Blood Blood Culture - Preliminary Coagulase negative staph 10/14/18 17:47 Blood Blood Culture - Preliminary 10/14/18 17:55 Blood Blood Culture - Preliminary 10/13/18 23:44 Blood Blood Culture - Preliminary Gram positive cocci 10/14/18 02:52 Nose MRSA (PCR) - Final 10/14/18 02:50 Nasopharynx Respiratory Virus Panel (PCR) - Final 10/14/18 02:50 Nasopharynx Respiratory Panel (PCR) - Final Assessment and Plan - Narrative A/P Narrative: A: 1. CONS bacteremia and bacteriuria: - pt doesnot seem to have UTI based on low CFUs, possible explanation of bacteria in urine being bacteremia - uncomplicated as pt doesnot have any intravascular prosthetic material - no concerns for infective endocarditis - sensi indicate sensitive to Cefazolin and Ceftriaxone 2. Rt ureteric stone with obstruction - await uretrostomy and stone removal Recommendations: - Stop IV Vanc - Start IV Cefazolin 2 gm q8 hrs - If repeat blood Cx continue to be negative, pt could be switched to IV Ceftriaxone 2 gm q24 hrs at discharge to finish a total of 7 days course counting from today (stop date 10/23/18). As IV therapy is needed only for a week, a midline seems more appropriate than a PICC line - await final Id of positive blood Cx. - pt counseled to drink about 1.5-2L of water every day for future prevention of stones Tommy Steele MD Infectious diseases
[2018-10-16] MEDS ORDERED: PROPOFOL 200 MG/20 ML VIAL IV ONE (16:50)
[2018-10-16] MEDS ORDERED: ONDANSETRON 4 MG/2 ML VIAL IV ONE (16:50)
[2018-10-16] MEDS ORDERED: fentaNYL 100 MCG/2 ML VIAL IV ONE (16:50)
[2018-10-16] MEDS ORDERED: LIDOCAINE HCL/PF 100 MG/5 ML SYRINGE IV ONE (16:50)
[2018-10-16] MEDS ORDERED: GLYCOPYRROLATE 0.2 MG/ML VIAL IV ONE (16:50)
[2018-10-16] MEDS ORDERED: MIDAZOLAM 2 MG/2 ML VIAL IV ONE (16:50)
[2018-10-16] MEDS ORDERED: DEXAMETHASONE 10 MG/ML VIAL IV ONE (16:50)
[2018-10-16] MEDS ORDERED: KETAMINE 100 MG/ML ML IV ONE (16:50)
--- NOTE | 2018-10-16 17:23 | Brief Operative Note ---
Date of procedure: 10/16/18 Pre-op diagnosis: right renal stone Post-op diagnosis: same Procedure: right ureteroscopy Grafts/Implants: No Anesthesia: spinal, GLMA Findings: see note Complications: none Surgeon: Cecilio Stiles Specimens Removed/Pathology: other (renal stone, urine culture) Condition: stable Disposition: PACU
[2018-10-16] MEDS ORDERED: fentaNYL 100 MCG/2 ML VIAL IV PRN (17:48)
[2018-10-16] MEDS ORDERED: ONDANSETRON 4 MG/2 ML VIAL IV PRN ×2 (17:48→18:28)
[2018-10-16] MEDS ORDERED: METHOCARBAMOL 1,000 MG/10 ML VIAL IV PRN (17:48)
[2018-10-16] MEDS ORDERED: ACETAMINOPHEN 1,000 MG/100 ML BOTTLE IV ONE (17:48)
[2018-10-16] MEDS ORDERED: NALOXONE HCL 0.4 MG/ML VIAL IV PRN (17:48)
[2018-10-16] MEDS ORDERED: FLUMAZENIL 0.1 MG/ML ML IV PRN (17:48)
[2018-10-16] MEDS ORDERED: LACTATED RINGERS 250 ML IV PRN (17:48)
[2018-10-16] MEDS ORDERED: IPRATROPIUM/ALBUTEROL 3 ML AMPUL.NEB NEB PRN (17:48)
--- NOTE | 2018-10-16 17:58 | XRay Report ---
CLINICAL INFORMATION: Right ureteral calculus TECHNIQUE: 0.3 minutes fluoroscopy utilized. Right ureteroscopy and stone removal performed by Dr Stiles Spot films were obtained. IMPRESSION: Intraoperative fluoroscopy utilized for right ureteroscopy and stone removal Interpreted and Authenticated by: Jose Elias Darnell 10/16/18
[2018-10-16] MEDS ORDERED: LACTATED RINGERS 1,000 ML IV SCH (18:00)
[2018-10-16] MEDS ORDERED: DEXTROSE 50% 50 ML VIAL IV PRN (18:28)
[2018-10-16] MEDS ORDERED: DEXTROSE 31 GM ORAL.SUSP PO PRN (18:28)
[2018-10-16] MEDS ORDERED: VANCOMYCIN PER PHARMACY IV SCH (18:28)
[2018-10-16] MEDS ORDERED: HYDROmorphone 2 MG/ML VIAL IV PRN (18:28)
[2018-10-16] MEDS ORDERED: PROMETHAZINE 25 MG/ML VIAL IV PRN (18:28)
[2018-10-16] MEDS ORDERED: MAG HYDROX/AL HYDROX/SIMETH 30 ML ORAL.SUSP PO PRN (18:28)
[2018-10-16] MEDS ORDERED: ALBUTEROL SULFATE 2.5 MG/3 ML NEBULIZER NEB PRN (18:28)
[2018-10-16] MEDS ORDERED: FAMOTIDINE/PF 20 MG/2 ML VIAL IV SCH (21:00)
[2018-10-16] MEDS ORDERED: TAMSULOSIN 0.4 MG CAPSULE PO SCH (21:00)
[2018-10-17] MEDS ORDERED: ACETAMINOPHEN 325 MG TABLET PO PRN (01:00)
[2018-10-17] MEDS: 0.9 % SODIUM CHLORIDE 10 ML SYRINGE IV SCH ×2 (04:30→12:58)
[2018-10-17 05:24] LABS: Basophils # (Auto) 0 K/mcL (0.0-0.3); Basophils % (Auto) 0 % (0.0-2.0); Eosinophils # (Auto) 0 K/mcL (0.0-0.7); Eosinophils % (Auto) 0.2 % (0.0-7.0); Granulocytes % (Auto) 86.5 % (38.0-78.0); Hematocrit 44.8 % (41.0-55.0); Hemoglobin 14.8 g/dL (13.5-16.5); Lymphocytes # (Auto) 0.5 K/mcL (1.5-4.8); Lymphocytes % (Auto) 9.9 % (15.5-49.0); Mean Cell Volume 88.9 fL (80.0-100.0); Mean Corpuscular HGB Conc 33.1 g/dL (31.0-36.0); Mean Platelet Volume 8.9 fL (7.4-10.4); Monocytes # (Auto) 0.2 K/mcL (0.1-0.9); Monocytes % (Auto) 3.4 % (1.0-12.0); Platelet Count 179 K/mcL (140-440); RBC 5.04 M/mcL (4.50-5.90); Red Cell Distribution Width 13.8 % (11.5-14.5); WBC 5.2 K/mcL (4.5-11.0)
[2018-10-17 05:57] LABS: ALT/SGPT 44 U/l (0-40); AST/SGOT 38 U/l (0-37); Albumin 3.4 gm/dL (3.2-5.2); Albumin/Globulin Ratio 1.2 (1.0-2.3); Alkaline Phosphatase 65 U/L (39-117); Bilirubin,Direct < 0.2 mg/dL (0.0-0.3); Bilirubin,Total 0.5 mg/dL (0.0-1.0); Blood Urea Nitrogen 17 mg/dl (8-23); Carbon Dioxide 23 mmol/L (22-30); Chloride 95 mmol/L (96-108); Globulin 2.9 gm/dL (2.2-3.7); Glomerular Filtration Rate 63; Glucose 320 mg/dL (70-105); Lactate Dehydrogenase 229 U/L (94-250); Magnesium 2.3 mg/dL (1.6-2.5); Phosphorous 4.1 mg/dL (2.7-4.5); Potassium 4.1 mmol/L (3.3-5.1); Sodium 134 mmol/L (133-145); Triglycerides 148 mg/dl (<150)
[2018-10-17] MEDS: INSULIN LISPRO 1 UNIT/0.01 ML UNIT SQ SCH ×2 (08:00→11:24)
[2018-10-17] MEDS: HEPARIN 5,000 UNIT/ML VIAL SQ SCH (08:57)
[2018-10-17] MEDS: MAGNESIUM OXIDE 400 MG TABLET PO SCH (08:57)
[2018-10-17] MEDS ORDERED: cefTRIAXone 2 GM in DEXTROSE 5% IN WATER 50 ML IV SCH (09:00)
[2018-10-17] MEDS ORDERED: ASPIRIN 81 MG TAB.CHEW CHEWED SCH (09:00)
[2018-10-17] MEDS ORDERED: MULTIVIT,THER IRON,CA,FA & MIN 1 TABLET PO SCH (09:00)
--- NOTE | 2018-10-17 10:04 | Discharge Summary ---
Medical - DS: Prov Patient information: Note initiated : 10/17/18 at 10:01 am Service Date, if different from initiated Date: [] Patient: Addison Humphries 83 y/o M admitted on 10/14/18 for Fever. Chief Complaint: [] Date of admission: 10/14/18 02:35 Discharge date: 10/17/18 Primary care physician: Delilah Hendrix Consults: 10/14/18 Consult to Physician [CONS] Stat Comment: Consulting Provider: Vinicio Manuel Reason For Exam: Physician to Consult 10/14/18 12:31 Consult to Physician [CONS] Routine Comment: hydroureter/hydronephrosis Consulting Provider: Cecilio Stiles Reason For Exam: Physician to Consult 10/16/18 07:57 Consult to Infectious Disease [CONS] Routine Comment: Consulting Provider: Tommy Steele Reason For Exam: Physician to Consult Discharging clinician: Vinicio Manuel Medical - DS: Meds - Discharge Medications Prescriptions: cefTRIAXone [Rocephin] 2 gm IV DAILY #6 vial Active and Home Medications: Home Medications Aspirin 81 mg CHEWED DAILY 10/14/18 [History Confirmed 10/14/18 Last Taken 10/13/18 08:00] Benazepril HCl [Lotensin] 40 mg PO DAILY 10/14/18 [History Confirmed 10/14/18 Last Taken 10/13/18 08:00] Multivit-Min/Iron Fum/Folic AC [Akzig-Yliotiz-Jxrykpoq Tablet] 1 tab PO DAILY 10/14/18 [History Confirmed 10/14/18 Last Taken 10/13/18 08:00] amLODIPine BESYLATE [Amlodipine Besylate] 5 mg PO DAILY 10/14/18 [History Confirmed 10/14/18 Last Taken 10/13/18 08:00] glipiZIDE [Glucotrol] 10 mg PO DAILY 10/14/18 [History Confirmed 10/14/18 Last Taken 10/13/18 08:00] metFORMIN [Glucophage] 1,000 mg PO QAMCC 10/14/18 [History Confirmed 10/14/18 Last Taken 10/13/18 08:00] metFORMIN [Glucophage] 500 mg PO QPMCC 10/14/18 [History Confirmed 10/14/18 Last Taken 10/13/18 20:00] sitaGLIPtin [Januvia] 50 mg PO BID 10/14/18 [History Confirmed 10/14/18 Last Taken 10/13/18 20:00] Medical - DS: Hosp Hospital course: Mr. Humphries is a 83 year old M with history of diabetes presents to the emergency room today for evaluation of chills and weakness. The patient notes he was at his baseline status 2 days ago 3 days ago. He went to [place] and drove back, on the way back he had one episode of chills and took some Tylenol which helped his symptoms. He was later seen by his PCP for annual wellness exam and labs were drawn subsequent to the visit. The patient notes he had no symptoms except for some back pain at that time. Since yesterday the patient has not been feeling well, he has increased weakness, chills and Rigor's subjective sensation and cold, there was also some confusion,. He was therefore brought to the hospital for further evaluation. The patient denies any headache changes in vision difficulty in swallowing no chest pain no cough no shortness of breath no nausea no vomiting no diarrhea no joint pains no skin rashes no difficulty in passing urine. He has visited a few [employer] stores in [place] but otherwise denies any other travel denies any camping On presenting to the hospital the patient was noted to be febrile, 103.1, tachycardic heart rate 109, respirations 18 saturating 87% on room air blood pressure 140 x 80 Labs show WBC count of 7.7, this was 13.4 a couple of days ago hemoglobin 15.9 platelets 167 total bilirubin 1.3 slight trend up from the previous value I believe, sodium 136 potassium 3.6 bicarbonate 21 creatinine 1.4, it was 1.5 for couple of days ago. Lactic acid at 4.0 ABG shows pH of 7.52 PCO2 27 PO2 51 on 1.5 L of oxygen Chest x-ray shows right basilar atelectasis versus pneumonia UA has 15 WBC cells leukocyte esterase and nitrite negative Given patient's increased oxygen needs, confusion, elevated lactic acid high- grade fever patient is being admitted to the hospital for further management In summary Patient admitted to the hospital with a diagnosis of bacteremia, his blood and urine cultures were positive for coag negative Staphylococcus staph epidermidis. No obvious source of infection was noted. Likely source unspecified bacteremia versus urinary tract infection. The patient was initially treated with vancomycin however the cultures came back sensitive to penicillin and will be discharged on IV Rocephin 2 g once a day. Patient has a midline placed. Last dose of antibiotic would be 10/23/2018 Patient also had right lower back pain flank pain, CT showed that the patient had hydronephrosis as well as a distal ureteral stone. Conservative management right while in the hospital with Flomax however the stone did not pass. Given the fact that the patient was bacteremic and had urine cultures positive for staph epidermidis urology was consulted, urology extracted the stone. Patient will follow-up with his PCP in 1 week no changes have been made to the patient's chronic home medication list Discharge diagnosis: bactermia, UTI - Time Spent with Patient Total time spent providing and/or coordinating discharge services: Greater than 30 minutes Medical - DS: Exam - Constitutional Vitals: Vital Signs Temp Pulse Resp BP BP Pulse Ox 10/17/18 07:55 98.2 F 71 18 139/90 95 10/17/18 04:00 98 F 60 18 148/86 97 10/17/18 00:00 97.9 F 66 16 136/66 10/16/18 20:21 97.8 F 59 L 16 130/79 96 10/16/18 19:51 98 F 16 149/85 96 10/16/18 19:46 96 10/16/18 19:21 56 L 18 145/82 95 10/16/18 19:06 60 16 137/84 96 10/16/18 18:51 18 150/87 95 10/16/18 18:36 98 F 56 L 18 145/82 96 10/16/18 18:10 98.0 F 64 20 146/80 98 10/16/18 17:55 64 17 153/93 99 10/16/18 17:40 98.6 F 61 20 158/82 100 10/16/18 17:35 61 22 140/85 100 10/16/18 17:30 67 13 147/82 99 10/16/18 17:25 98.9 F 73 12 133/78 98 10/16/18 16:00 97.6 F 58 L 14 124/78 96 10/16/18 13:20 68 18 95 10/16/18 11:42 97 F 20 147/78 94 Intake and Output 10/16/18 10/17/18 10/17/18 21:59 05:59 13:59 Intake Total 1000 750 Output Total 1060 500 Balance -60 250 Intake: IV 150 Oral 600 IV - Manual Only 1000 Output: Void Amount 1050 500 Estimated Blood Loss 10 Other: Urine Appearance Sediment Clear Urine Color Bright Red Bright Red Urine Odor Normal Weight 185 lb Additional comments: Constitutional; Afebrile, cooperative, alert, not in distress. Eyes- No icterus, , No periorbital swelling Ears- Ext ear normal, hearing normal to conversation. Neck- Midline trachea, supple Respiratory system: Air Entry equal on both sides, No crackles or wheezing, no rhonchi. CVS- Rate rhythm regular, S1,S2 heard, no gallop, no rub. Abdomen- Soft nontender abdomen, no organomegaly, no tenderness, no guarding or rigidity, [employer]- AOOx3, moving all extremities, no gross focal deficit noted. Medical - DS: Data Labs on day of discharge: Labs from last 24 hours 10/17/18 10/17/18 10/17/18 08:00 04:25 04:25 WBC 5.2 RBC 5.04 Hgb 14.8 Hct 44.8 MCV 88.9 MCH 29.5 MCHC 33.1 RDW 13.8 Plt Count 179 MPV 8.9 Gran % 86.5 H Lymph % (Auto) 9.9 L [place] % (Auto) 3.4 Eos % (Auto) 0.2 Baso % (Auto) 0 Gran # 4.5 Lymph # (Auto) 0.5 L [place] # (Auto) 0.2 Eos # (Auto) 0 Baso # (Auto) 0 Sodium 134 Potassium 4.1 Chloride 95 L Carbon Dioxide 23 Anion Gap 16.0 BUN 17 Creatinine 1.1 GFR Calculation 63 Glucose 320 H Uric Acid 4.0 Calcium 8.0 L Phosphorus 4.1 Magnesium 2.3 Total Bilirubin 0.5 Direct Bilirubin < 0.2 GGT 32 AST 38 H ALT 44 H Alkaline Phosphatase 65 Lactate Dehydrogenase 229 Total Protein 6.3 Albumin 3.4 Globulin 2.9 Albumin/Globulin Ratio 1.2 Triglycerides 148 Stone Weight Stone Composition Stone Nidus Vancomycin Trough 12.8 Specimen Type 10/16/18 17:39 WBC RBC Hgb Hct MCV MCH MCHC RDW Plt Count MPV Gran % Lymph % (Auto) [place] % (Auto) Eos % (Auto) Baso % (Auto) Gran # Lymph # (Auto) [place] # (Auto) Eos # (Auto) Baso # (Auto) Sodium Potassium Chloride Carbon Dioxide Anion Gap BUN Creatinine GFR Calculation Glucose Uric Acid Calcium Phosphorus Magnesium Total Bilirubin Direct Bilirubin GGT AST ALT Alkaline Phosphatase Lactate Dehydrogenase Total Protein Albumin Globulin Albumin/Globulin Ratio Triglycerides Stone Weight Pending Stone Composition Pending Stone Nidus Pending Vancomycin Trough Specimen Type Pending Preliminary micro results at discharge 10/16/18 19:04 Urine Culture - Preliminary Urine - Kidney, Right 10/14/18 17:47 Blood Culture - Preliminary Blood 10/14/18 17:55 Blood Culture - Preliminary Blood 10/14/18 00:09 Urine Culture - Preliminary Urine - Clean Void Mid-Stream Coagulase negative staph 10/13/18 23:44 Blood Culture - Preliminary Blood Gram positive cocci Medical - DS: A/P - Patient/Caregiver Discharge Instructions Activity: increase activity as tolerated (Avoid strenuous activity until you finish antibiotic course) Diet: Consistent Carbohydrate Additional Instructions: Follow-up with your primary care provider in 1 week Avoid strenuous activity until you finish your antibiotic course and feel back to normal Make sure you keep yourself well hydrated Go to the emergency room if fever chills worsening status or any other acute concern You will need to come daily to the hospital for IV antibiotics, last day of antibiotic is 23 October 2018. Discontinue PICC line after the last dose of antibiotic - Follow up Plan Follow up with: Delilah Hendrix MD [Primary Care Provider] - Disposition: Home, Self-Care Prognosis: Fair Rehab Potential: Fair I certify that the patient requires SNF services: No Overall status at discharge: patient is back to baseline Medical - DS: Qual - VTE Deep Vein Thrombosis/Pulmonary Embolism Present on Admission: No
[2018-10-17] MEDS ORDERED: INSULIN LISPRO 1 UNIT/0.01 ML UNIT SQ SCH (12:07)
[2018-10-17] MEDS ORDERED: 0.9 % SODIUM CHLORIDE 250 ML IV ONE (14:22)
[2018-10-17] MEDS ORDERED: INSULIN REGULAR, HUMAN 1 UNIT/0.01 ML UNIT IV ONE (14:23)
--- NOTE | 2018-10-19 07:34 | Operative Note ---
DATE OF OPERATION: 10/16/2018 PREOPERATIVE DIAGNOSIS: Right ureteral stone. POSTOPERATIVE DIAGNOSIS: Right ureteral stone. PROCEDURE: Cystoscopy, ureteroscopy, removal of stone. SURGEON: Cecilio Stiles MD INDICATION: The patient is an 83-year-old gentleman who was reported with fevers and chills. CT scan shows a distal right ureteral stone and he presents now for removal. PROCEDURE IN DETAIL: The patient was identified and consent was signed. He was given general anesthesia, placed in lithotomy position, prepped and draped in a standard fashion. Cystourethroscopy showed normal-appearing urethra. Prostate was minimally enlarged. He did have 4+ trabeculation of the bladder. We were able to see the orifices, but were unable to pass a wire so using the semi-rigid ureteroscope was able to pass a wire up into the kidney. I was then able to cannulate the ureter and went up and was able to see the stone. This was approximately 5 mm. We were able to grasp this and bring it out without difficulty. The ureteroscope was then introduced and there was no perforation. I was able to collect urine per hospitalist's request. This will be sent for culture. His bladder was then drained. He was awoken and taken to recovery room in stable condition. He tolerated the procedure well. ALBERTA:jaci Job ID: [id number] Doc ID: [id number] Cecilio Stiles MD
--- NOTE | 2018-10-19 12:33 | Surgical Pathology Report ---
HISTOLOGY SPECIMEN MICROSCOPIC DIAGNOSIS MINERAL MATERIAL, RIGHT URETERAL, EXTRACTION: -- CALCULUS (GROSS DIAGNOSIS), SUBMITTED FOR CHEMICAL ANALYSIS. (ACP:adj) PROCEDURAL IMPRESSION Stone. GROSS DESCRIPTION The specimen is received fresh as right ureteral stone and consists of a light brown portion of mineral material that measures 0.6 x 0.4 x 0.3 cm. The material will be submitted for chemical analysis. Gross only. (ACP:adj) Electronically Signed by: Macho Busby M.D.
== END 2018-10-17 17:10 | disposition home or self-care (01) | DRG 853 ==
LOC: ED 22:53 → ICU 10-14 02:35 → MEDSUR 10-16 13:12
PROVIDERS: ADMIT Internal Medicine; ATTEND Internal Medicine